=== PATIENT | male | born 2000 ===

== ENCOUNTER 2025-04-27 20:25 | Emergency (ER) | payer OTHER ==
[2025-04-27] MEDS: Alum Hydrox/Mag Hydrox/Simeth 30 ML, Lidocaine 2% 15 ML PO ONE ×2 (20:44→20:59)
== END 2025-04-27 21:38 | disposition home or self-care (01) ==
LOC: KA.ED 20:25
DX: K22.9 Disease of esophagus, unspecified (principal)
CPT/HCPCS: 99283; A9270-GY